=== PATIENT | female | born 1985 | race Caucasian/White ===

== ENCOUNTER 2016-10-05 14:13 | Emergency (ER) | payer OTHER ==
[~2016-10-05] VITALS: Ht 160 cm; Wt 97.0 kg
[~2016-10-05 14:13] MED LIST: ALBUAER19 INH; LEVOIUD
[2016-10-05 14:17] VITALS: TEMP 36.9; Ht 160 cm; Wt 97.0 kg
[2016-10-05] MEDS ORDERED: ALBUTEROL HFA 8 GM INHALER INH ONE (14:45)
--- NOTE | 2016-10-05 15:05 | DIAGNOSTIC IMAGING REPORT ---
CHEST 2 VIEWS ROUTINE CLINICAL HISTORY: Cough and shortness of breath COMPARISON STUDY: No previous studies for comparison. FINDINGS: The heart is normal in size. There is no lobar consolidation. There is no failure. There are no pleural effusions. There are minor left basilar atelectatic changes.[ IMPRESSION: Minor left basilar atelectasis. No evidence of lobar consolidation Electronically signed by: Rusty Perry M.D. 10/05/2016 3:03 PM Dictated Date/Time: 10/05/2016 3:02 PM
[2016-10-05] MEDS ORDERED: BENZ1CAP90 PO (15:44)
[2016-10-05] MEDS ORDERED: AZITTAB PO (15:44)
[2016-10-05 15:53] VITALS: BP 127/97; PULSE 91; O2SAT 96
--- NOTE | 2016-10-05 16:08 | EMERGENCY ROOM VISIT NOTE ---
History First contact with patient: 14:24 Chief Complaint: FEVER Stated Complaint: FEVER,CHEST CONGESTION History of Present Illness The patient is a 31 year old white female who presents to the Emergency Room with complaints of cold type symptoms that are present for 5 days. She notes a vigorous cough that has gotten worse with time. She also believes she has had a fever. She has chest congestion as well as head congestion. She denies any sore throat. She is nauseated. He has vomited a few times due to the coughing. No diarrhea. No known ill contacts. Treatment has consisted of Tylenol and Motrin without lasting relief. She did not get an influenza vaccine this year. She denies any abdominal pain. Review of Systems REVIEW OF SYSTEM: HEENT: No dizziness, visual problems, hearing loss, or tinnitus. There is no difficulty swallowing and no oral lesions are present. PULMONARY: No cough, shortness of breath, sputum production or hemoptysis. GASTROINTESTINAL: No diarrhea, constipation, nausea, vomiting, or abdominal pain. GENITOURINARY: No dysuria, frequency, urgency or nocturia. NEUROLOGIC: No weakness, muscle tenderness, epilepsy or history of neurological problems. MUSCULOSKELETAL: No history of joint tenderness/swelling. No history of arthritis or arthralgias. SKIN: No rashes or lesions. PSYCHIATRIC: No history of depression or mental illness. ENDOCRINE: No history of diabetes, thyroid disorders, or abnormal hair growth. Past Medical/Surgical History Previous surgeries: Medical history: Family History Noncontributory. Social History Smoking Status: Current Every Day Smoker Smokeless Tobacco Use: No Drug Use: none Marital Status: Housing Status: lives with family Occupation Status: employed Current/Historical Medications Scheduled Azithromycin (Zithromax Z-Geoffrey), 0 PO UD Scheduled PRN Benzonatate (Tessalon Perles), 200 MG PO TID PRN for Cough Allergies Coded Allergies: Penicillins (Verified Allergy, Mild, 10/05/16) Physical Exam Vital Signs Date Time Temp Pulse Resp B/P Pulse Ox O2 Delivery O2 Flow Rate FiO2 10/05/16 15:53 91 14 127/97 96 10/05/16 15:46 91 14 127/97 96 Room Air 10/05/16 14:17 36.9 97 16 132/92 97 Pain Rating (0-10): 2.0 Physical Exam Gen.: Well-developed, well-nourished, young white female, in obvious discomfort. No acute distress. Sitting on a bed. Alert and oriented. Skin: Warm and dry with good turgor. No rashes or lesions. No ecchymosis or erythema. The patient is not diaphoretic. No abrasions. HEENT: Normocephalic atraumatic. Eyes PERRLA, EOMI. No conjunctiva or scleral injection. Ears right TM is retracted. She states she had surgery on this before and it does not look normal. Left TM has visible pus behind it. TM is bulging. Mild erythema. Canals are patent. Nares patent bilaterally without turbinate enlargement. No significant drainage. No epistaxis. Oropharynx without erythema or exudate. Uvula midline, oral mucosa moist. No lesions present. Lymphatics are palpated without anterior or posterior chain enlargement or tenderness. Heart: Heart RRR. No MGR. No carotid bruit. Peripheral pulses are 2+. Lungs: Lungs have crackles present in the bases. No rhonchi or wheezing. Good air movement. The patient is able to take a deep breath. Frequent vigorous cough. Abdomen: Abdomen was inspected, auscultated, and palpated. Obese. Bowel sounds present x 4. Soft, nontender to palpation. No hepato-splenomegaly. No masses noted. Musculoskeletal: Gross motor function of the upper and lower extremities is intact and unremarkable. Medical Decision & Procedures ER Provider Diagnostic Interpretation: Chest x-ray obtained today was read by radiology as positive for atelectasis in the left base. Laboratory Results Test 10/05/16 14:35 Influenza Type A Antigen Neg for Influ A (NEG) Influenza Type B Antigen Neg for Influ B (NEG) Influenza swab was negative Medications Administered Medications (Trade) Dose Ordered Sig/Kate Route Start Time Stop Time Status Last Admin Dose Admin Albuterol (Ventolin Hfa Inhaler) 2 puffs NOW ONCE INH 10/05/16 14:45 10/05/16 14:46 DC 10/05/16 14:49 2 PUFFS Albuterol inhaler ED Course Patient was educated regarding today's findings. Conservative care measures were discussed. Nasal swab was obtained. Chest x-ray was obtained. She has atelectasis on film and audible crackles on exam. She was given an albuterol inhaler with spacer to use 2 puffs every 4 hours as needed. First 2 puffs were given immediately. She continued to cough. I'm concerned about bronchitis and possible development into pneumonia. She was started on Zithromax to cover her otitis media of the left ear and her lungs. She was also prescribed Tessalon Perles for her cough. She may also use Delsym syrup twice a day as needed for cough. Cool mist humidifier may also improve her symptoms. Follow-up with her PCP. Continue with Tylenol and Motrin every 6 hours as needed for control of her temperature and body aches. Return to the ED for any worsening of symptoms. Medical Decision Possibility of influenza a, influenza B, otitis media, sinusitis, strep pharyngitis, viral upper respiratory illness, viral lower respiratory illness, pneumonia, bronchitis, and acute asthma flare was considered. Impression Primary Impression: Bronchitis Additional Impressions: Otitis media of left ear cough Departure Information Dispostion Home / Self-Care Prescriptions Azithromycin (ZITHROMAX Z-GEOFFREY) 250 Mg Tab 0 PO UD, #1 PKT 2 TABS DAY 1, THEN 1 TAB DAILY FOR 4 DAYS Prov: Asim Subramanian.,P.A. 10/05/16 Benzonatate (Tessalon Perles) 200 Mg Cap 200 MG PO TID Y for Cough, #21 CAP Prov: Asim Subramanian,P.A. 10/05/16 Forms ALBUTEROL INHALER INSTRUCTIONS, HOME CARE DOCUMENTATION FORM, COOL MIST HUMIDIFIER, MOTRIN USE, TYLENOL USE, IMPORTANT VISIT INFORMATION Patient Instructions [facility] Additional Instructions Maintain hydration Tylenol and Motrin every 6 hours as needed for discomfort Delsym 2 teaspoons every 12 hours as needed for cough You may use Tessalon pearls up to every 8 hours (3x day) as needed for persisting cough Zithromax daily 5 days albuterol inhaler 2 puffs every 4-6 hours as needed for cough/shortness of breath Follow-up with your PCP for any worsening symptoms Problem Qualifiers Additional Impressions: Otitis media of left ear Otitis media type: suppurative Chronicity: acute Recurrence: not specified as recurrent Spontaneous tympanic membrane rupture: without spontaneous rupture Qualified Codes: H66.002 - Acute suppurative otitis media without spontaneous rupture of ear drum, left ear
== END 2016-10-05 15:55 | disposition home or self-care (01) ==
LOC: C.EDB 14:16
DX: J40 Bronchitis, not specified as acute or chronic (principal); H66.002 Acute suppurative otitis media without spontaneous rupture of ear drum, left ear; R05 Cough; F17.210 Nicotine dependence, cigarettes, uncomplicated